=== PATIENT | female | born 1990 | race Caucasian/White ===

== ENCOUNTER 2022-03-12 22:21 | Emergency (ER) | payer SELFPAY ==
--- NOTE | 2022-03-12 22:47 | [facility].EDGENADL ---
ED Disposition Clinical Impression: Viral syndrome Nausea and vomiting Qualifiers: Vomiting type: unspecified Qualified Code(s): R11.2 - Nausea with vomiting, unspecified Disposition: Home, Self-Care Condition on Discharge: Good Instructions: DI for Viral Syndrome Referrals: Provider,Referral, [Primary Care Provider] - - Critical Care Critical Care Time: No Attestation: On , the high probability of a clinically significant, sudden or life threatening deterioration of the following system(s) required my full and direct attention, intervention and personal management. The time I documented below is in addition to time spent performing reported procedures but includes the following listed in this critical care notation. Medical Decision Making - Medical Records Medical records reviewed: Yes: I reviewed the patient's medical records. - Kenny Inquiry Pt receiving controlled substance: No Vital Signs: 03/12/22 23:34 Temperature 102 F H Temperature Source Oral Pulse Rate [Apical] 101 H Respiratory Rate 18 Blood Pressure [Right Arm] 118/73 Blood Pressure Mean [Right Arm] 88 Blood Pressure Source [Right Arm] Automatic Cuff Blood Pressure Position [Right Arm] Sitting 02 Sat by Pulse Oximetry 96 Oxygen Delivery Method Room Air Orders (Tests/Meds): ED MEDICATIONS Discontinued Medications Generic Name Dose Route Start Last Admin Trade Name Freq PRN Reason Stop Dose Admin Acetaminophen 1,000 mg 03/12/22 23:29 03/12/22 23:58 Acetaminophen 500mg Tab PO 03/12/22 23:30 1,000 mg ONCE ONE Administration Ibuprofen 400 mg 03/12/22 23:29 03/12/22 23:58 Ibuprofen 400 Mg Tablet PO 03/12/22 23:30 400 mg ONCE ONE Administration Ondansetron HCl 4 mg 03/12/22 23:29 03/12/22 23:58 Ondansetron 4mg Odt SL 03/12/22 23:30 4 mg ONCE ONE Administration Medical Decision Narrative: Angelina is a 31-year-old female presenting with a chief complaint of symptoms of viral upper respiratory infection versus viral gastroenteritis. Patient is unvaccinated for COVID-19 and has significant exposure to her who had similar symptoms which have now resolved. Patient refuses to be evaluated with a COVID-19 or influenza swab and declines a test. States that she is concerned for typhoid fever due to her bites. She was advised that this is not an appropriate evaluation for the emergency department and that she would not have lab work for several weeks. Counseled to follow-up with her primary care physician should her symptoms not resolve. At this time, patient is hemodynamically stable but febrile. Treated symptomatically with Motrin, Tylenol, Zofran and counseled on supportive care at home. Discharged in a stable condition. Able to tolerate PO challenge in the ED. General Adult HPI - General Stated complaint: chills, vomiting, body aches Time Seen by Provider: 03/12/22 22:45 - History of Present Illness HPI narrative: Angelina is a 31yo F with history of fertility problems is presenting for chief complaint of headache, fever, sore throat, dry cough, nausea, vomiting and abdominal cramping. Patient states the whole family has had similar symptoms. Her started being symptomatic on Monday, symptoms have now resolved. Child is sick as well. Patient denies any shortness of breath, hemoptysis or chest pain. Has had loose stools but no blood. Denies dysuria. - Related Data Allergies Allergy/AdvReac Type Severity Reaction Status Date / Time No Known Allergies Allergy Verified 03/12/22 23:33 [facility] History - Hepatitis A Screen Attestation statement:: This patient has been screened for Hepatitis A risk factors. ROS Obtained: Yes Systems reviewed as appropriate & no additional complaints - Constitutional Constitutional: Reports body ache, Reports fever(s), Reports headache(s), Reports malaise - Eyes Eyes: Denies blurry vision, Denies change in vision
[2022-03-12 23:34] VITALS: BP 118/73; PULSE 101; RESP 18; TEMP 38.8; O2SAT 96; BMI 18.3
[2022-03-13 01:43] VITALS: BP 120/78; PULSE 95; RESP 18; TEMP 37.7; O2SAT 98
[2022-03-13 01:49] VITALS: BP 120/68; PULSE 90; RESP 18; TEMP 37.1; O2SAT 99
== END 2022-03-13 01:51 | disposition home or self-care (01) ==
PROVIDERS: Emergency Provider Emergency Medicine
DX: B34.9 Viral infection, unspecified (principal); R11.2 Nausea with vomiting, unspecified; R51.9 Headache, unspecified; R50.9 Fever, unspecified; J02.9 Acute pharyngitis, unspecified; R05.9 Cough, unspecified; R10.9 Unspecified abdominal pain
CPT/HCPCS: 99283